=== PATIENT | male | born 1955 | race Caucasian/White ===

== ENCOUNTER 2017-06-16 07:45 | Inpatient (IN) | payer OTHER ==
[~2017-06-16] VITALS: Ht 172.7 cm; Wt 99.3 kg
[~2017-06-16 07:45] MED LIST: ASPIRIN81 MG; BACITRACIN 50,000 UNIT VIAL ONE; CALCIUM500 MG; CEFAZOLIN SOD 2 GM/D5W 50ML 50 ML IV ONE; CELECOXIB 200 MG CAP ONE; COLLAGEN HYDROLY1 GM; DEXAMETHASONE SOD PHOS 10 MG/1 ML VIAL ONE; FISH OIL 1,0001 EAC2; GABAPENTIN 300 MG CAP ONE; LOSARTAN POTASS25 MG; MUPIROCIN 2% OINT 22 GM TUBE ONE; PROSTATE THERA1 EACH; ROPIVACAINE 246.25 MG, EPINEPHRINE HCL 1:1000 0.5 MG, CLONIDINE HCL 0.08 MG, KETOROLAC ... INJ ONE; SCOPOLAMINE 1.5 MG PATCH ONE; TRANEXAMIC ACID 1,000 MG/10 ML ML ONE; TYLENOL325 MG PO
[2017-06-16] MEDS ORDERED: PROMETHAZINE HCL (IM) 25 MG/ML VIAL INJ PRN (09:15)
[2017-06-16] MEDS ORDERED: KETOROLAC TROMETHAMINE 30 MG/ML VIAL IV PRN (09:15)
[2017-06-16] MEDS ORDERED: ACETAMINOPHEN 650 MG SUPP PR PRN (09:15)
[2017-06-16] MEDS ORDERED: ONDANSETRON HCL 4 MG ORAL DISINTEGRATING TAB PO PRN (09:15)
[2017-06-16] MEDS ORDERED: DIPHENHYDRAMINE HCL INJ 50 MG/ML VIAL IM/IV PRN (09:15)
[2017-06-16] MEDS ORDERED: ZOLPIDEM TARTRATE 5 MG TAB PO PRN (09:15)
[2017-06-16] MEDS ORDERED: DOCUSATE SODIUM 100 MG CAP PO PRN (09:15)
[2017-06-16 10:50] VITALS: BP 138/79
[2017-06-16] MEDS: ACETAMINOPHEN 1000 MG/100 ML IV SCH ×2 (11:24→18:05)
--- NOTE | 2017-06-16 11:38 | Diagnostic Imaging Report ---
PROCEDURE: X-RAY RIGHT KNEE, ONE OR TWO VIEWS COMPARISON: None. INDICATIONS:POST RIGHT KNEE SURGERY FINDINGS: See conclusion. CONCLUSION: Status post total right knee replacement with surrounding soft tissue swelling, air and deion consistent with recent surgery. No acute fractures. Dictated by: Linden Madrigal M.D. on 06/16/2017 at 11:40 Electronically approved by: Linden Madrigal M.D. on 06/16/2017 at 11:40
[2017-06-16 12:00] VITALS: BP 138/79
[2017-06-16] MEDS: CEFAZOLIN SOD 1 GM VIAL IV SCH ×2 (13:26→21:51)
[2017-06-16] MEDS ORDERED: CEFAZOLIN SOD 1 GM/NS 50ML 50 ML IV SCH (14:00)
[2017-06-16] MEDS ORDERED: SEVOFLURANE INHAL SOLN 250 ML PEN BTL ONE (14:04)
[2017-06-16] MEDS ORDERED: DEXAMETHASONE SOD PHOS INJ 4 MG/ML VIAL ONE (14:04)
[2017-06-16] MEDS ORDERED: KETOROLAC TROMETHAMINE 30 MG/ML VIAL ONE (14:04)
[2017-06-16] MEDS ORDERED: PROPOFOL IV EMULSION 10 MG/ML 20 ML VIAL ONE (14:04)
[2017-06-16] MEDS ORDERED: ONDANSETRON HCL INJ 2 MG/ML VIAL ONE (14:04)
[2017-06-16] MEDS ORDERED: ACETAMINOPHEN 1000 MG/100 ML IV ONE (14:04)
--- NOTE | 2017-06-16 14:38 | Operative Report ---
DATE OF PROCEDURE: June 16, 2017 INSULATION SPRAYER: All Ball PA-C The patient was brought to the operating room for induction of anesthesia. Throughout this case, my PA's assistance was necessary for retraction of soft tissue and positioning of the extremity. This allows for efficient and technically successful execution of the operation and is considered medically necessary. PREOPERATIVE DIAGNOSIS: Osteoarthritis right knee. POSTOPERATIVE DIAGNOSIS: Osteoarthritis right knee. PROCEDURE: Right total knee arthroplasty. INDICATIONS: The patient is a 62-year-old gentleman who has end-stage arthritis of his right knee. The findings and options have been discussed. We plan on a right total knee arthroplasty. The risks and benefits have been explained. He states he understands and wishes to proceed. DESCRIPTION OF PROCEDURE: The patient was brought to the operating room and placed under general anesthetic. He received tranexamic acid, prophylactic antibiotics and a regional block in the holding area. His right lower extremity was prepped and draped in a sterile manner. A preoperative time out was performed. The extremity was exsanguinated, and a proximal tourniquet was inflated to 300 mmHg. A limited incision anterior approach was made to the right knee. A medial parapatellar arthrotomy and soft-tissue releases were performed. A blood-tinged hemarthrosis was encountered. The knee was brought up into full flexion with the patella everted. The meniscal remnants, marginal osteophytes and cruciate ligaments were removed. A [employer] II posterior stabilized knee system was used throughout the case. An extramedullary cutting guide was used to resect the proximal tibia. The tibial baseplate was noted to be a size number 7. Dense sclerotic bone was encountered in the medial compartment. Additional small drill holes were placed for added cement fixation. The central fin punch was impacted, and attention was directed towards the distal femur. An intramedullary cutting guide was used to resect the distal femur in 6 degrees of valgus and rotation referenced off of a combination of landmarks including Lemoyne's line, the epicondylar axis and the posterior condyles. The femoral component was also a size number 7. Trial reductions were performed. A 9 mm ultracongruent tibial insert was felt to provide optimal soft-tissue balancing in full extension and 90 degrees of flexion. The patella was resurfaced with a 35 mm x 9 mm patellar button. The thickness was checked before and after and was right at 26 mm. Patellar tracking was concentric. The trial implants were then all removed. A 100 mL premixed pericapsular injection was placed into the surroundings soft tissue. The knee was thoroughly irrigated with a Pulsavac. The components were cemented into place using a single mix of Palacos cement pre-loaded with gentamicin. The extravasated cement was carefully removed while the knee was further irrigated with a shower-tip pulsatile lavage. The arthrotomy was then closed with interrupted number 1 Ethibond. The skin was closed with subcuticular Vicryl and deion. A sterile bandage was applied. The patient was extubated and transported to the recovery room in stable condition. Blood loss was minimal. All needle and sponge counts were correct. Job#: [id number]
[2017-06-16] MEDS: HYDROCODONE/APAP 7.5MG-325MG 1 EA TAB PO PRN (15:15)
[2017-06-16] MEDS: CELECOXIB 200 MG CAP PO SCH (16:24)
[2017-06-16] MEDS: ASPIRIN 325 MG TAB PO SCH (16:24)
[2017-06-16 16:42] VITALS: BP 133/64
[2017-06-16] MEDS ORDERED: MIDAZOLAM HCL 2 MG/2 ML VIAL ONE (17:47)
[2017-06-16] MEDS ORDERED: FENTANYL CITRATE/PF 100MCG/2 ML INJ ONE (17:47)
[2017-06-16] MEDS ORDERED: ROPIVACAINE 0.5% 5 MG/ML 30 ML SDV ONE (19:41)
[2017-06-16] MEDS ORDERED: LIDOCAINE HCL 2% LOCAL 20 ML VIAL ONE (19:41)
[2017-06-16 20:00] VITALS: BP 120/61
[2017-06-16 21:17] VITALS: BP 133/64
[2017-06-17] VITALS: BP 118/60
[2017-06-17 04:00] VITALS: BP 115/60
[2017-06-17] MEDS: HYDROCODONE/APAP 7.5MG-325MG 1 EA TAB PO PRN ×2 (05:08→13:50)
[2017-06-17] MEDS ORDERED: SODIUM CHLORIDE 0.9% 250ML 250 ML ONE (05:35)
[2017-06-17] MEDS: ACETAMINOPHEN 1000 MG/100 ML IV SCH ×2 (05:48)
[2017-06-17] MEDS: CEFAZOLIN SOD 1 GM VIAL IV SCH ×2 (06:00→13:52)
[2017-06-17 07:14] LABS: HEMATOCRIT 35.4 % (38.2-49.6); HEMOGLOBIN 12.2 g/dL (14.0-18.0)
[2017-06-17 08:48] VITALS: BP 115/68
[2017-06-17] MEDS: CELECOXIB 200 MG CAP PO SCH (08:57)
[2017-06-17] MEDS: ASPIRIN 325 MG TAB PO SCH (08:57)
[2017-06-17] MEDS: HYDROCODONE/APAP 5MG-325MG TAB PO PRN ×2 (08:58→15:43)
[2017-06-17] MEDS ORDERED: ACETAMINOPHEN 1000 MG/100 ML IV PRN (09:15)
[2017-06-17] MEDS ORDERED: ASPIRIN325 MG PO (11:21)
[2017-06-17] MEDS ORDERED: Celecoxib PO (11:29)
[2017-06-17 13:52] VITALS: BP 155/69
== END 2017-06-17 16:01 | disposition home health service (06) | DRG 470 ==
LOC: OR 07:45 → MED/SURG 10:10
PROVIDERS: ADMIT Specialist; ATTEND Specialist
PROC: 0SRC0J9 Replacement of Right Knee Joint with Synthetic Substitute, Cemented, Open Approach (ICD-10-PCS; principal; 2017-06-16 07:47)
DX: M17.11 Unilateral primary osteoarthritis, right knee (principal); I10 Essential (primary) hypertension; D64.9 Anemia, unspecified
CPT/HCPCS: 36415; 85014; 85018; 86850; 86900; 86920; 93005; J0171; J0690; J1100; J1885; J2001; J2250; J2405; J2795; J7050